=== PATIENT | female | born 1980 | race Caucasian/White ===

== ENCOUNTER 2019-11-23 11:54 | Emergency (ER) | payer MEDICAID ==
[2019-11-23] MEDS ORDERED: Albuterol/Ipratropium 3.0-0.5 MG/3 ML Neb Soln NEB ONE (12:29)
--- NOTE | 2019-11-23 13:15 | EDM.PDOC ---
ED HPI GENERAL MEDICAL PROBLEM - General Chief Complaint: Chest Pain Stated Complaint: RAPID HEART RATE Time Seen by Provider: 11/23/19 12:25 Source of Information: Reports: Patient, Family History Limitations: Reports: No Limitations - History of Present Illness INITIAL COMMENTS - FREE TEXT/NARRATIVE: 39-year-old female with a cough and anterior chest pain for the past 2 days, no fever, starting to have some productive sputum but overnight she developed more intense pain and pleuritic-like pain with breathing. She called the clinic and they sent her to the emergency room. She is a smoker. 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 Denies: Fever, Chills HEENT: Reports: No Symptoms Respiratory: Reports: Shortness of Breath, Pleuritic Chest Pain, Cough, Sputum. Denies: Hemoptysis Cardiovascular: Reports: Chest Pain (Right anterior chest pain with breathing) GI/Abdominal: Denies: Nausea, Vomiting : Reports: No Symptoms Skin: Reports: No Symptoms Neurological: Denies: Dizziness, Headache Psychiatric: Reports: Anxiety ED EXAM, GENERAL - Physical Exam Exam: See Below Exam Limited By: No Limitations General Appearance: Alert, Anxious Eye Exam: Bilateral Eye: Normal Inspection Head: Atraumatic Neck: Supple Respiratory/Chest: Wheezing (Expiratory wheezing is heard bilaterally, especially upper posterior kenyon), Other (Fairly tender to palpation along the right costochondral area) Cardiovascular: Regular Rate, Rhythm, Tachycardia. No: Extra Beats GI/Abdominal: Soft, Non-Tender Extremities: Normal Inspection. No: Pedal Edema Neurological: Alert, Oriented Psychiatric: Anxious Skin Exam: Warm, Dry Course - Vital Signs Last Recorded V/S: Last Vital Signs Temp 99.3 F 11/23/19 12:14 Pulse 109 H 11/23/19 12:14 Resp 20 11/23/19 12:14 BP 135/91 H 11/23/19 12:14 Pulse Ox 96 11/23/19 12:14 - Orders/Labs/Meds Orders: Active Orders 24 hr Category Date Time Status RT Aerosol Therapy [RC] ASDIRECTED Care 11/23/19 12:29 Active Labs: Laboratory Tests 11/23/19 11/23/19 11/23/19 Range/Units 12:47 12:47 12:47 WBC 12.7 H (4.5-11.0) K/uL RBC 4.61 (3.30-5.50) M/uL Hgb 14.3 (12.0-15.0) g/dL Hct 42.3 (36.0-48.0) % MCV 92 (80-98) fL MCH 31 (27-31) pg MCHC 34 (32-36) % Plt Count 254 (150-400) K/uL Neut % (Auto) 78 H (36-66) % Lymph % (Auto) 13 L (24-44) % [place] % (Auto) 9 H (2-6) % Eos % (Auto) 1 L (2-4) % Baso % (Auto) 0 (0-1) % D-Dimer, Quantitative < 100 (0.0-400.0) ng/mL Sodium 139 L (140-148) mmol/L Potassium 4.4 (3.6-5.2) mmol/L Chloride 105 (100-108) mmol/L Carbon Dioxide 27 (21-32) mmol/L Anion Gap 11.4 (5.0-14.0) mmol/L BUN 9 (7-18) mg/dL Creatinine 0.9 (0.6-1.0) mg/dL Est Cr Clr Drug Dosing 70.11 mL/min Estimated GFR (MDRD) > 60 (>60) Glucose 104 (74-106) mg/dL Calcium 8.5 (8.5-10.1) mg/dL Total Bilirubin 0.5 (0.2-1.0) mg/dL AST 20 (15-37) U/L ALT 31 (12-78) U/L Alkaline Phosphatase 67 (46-116) U/L Troponin I < 0.017 (0.000-0.056) ng/mL Total Protein 6.6 (6.4-8.2) g/dL Albumin 3.5 (3.4-5.0) g/dL Globulin 3.1 (2.3-3.5) g/dL Albumin/Globulin Ratio 1.1 L (1.2-2.2) Meds: Medications Discontinued Medications Generic Name Dose Route Start Last Admin Trade Name Freq PRN Reason Stop Dose Admin Albuterol/Ipratropium 3 ml 11/23/19 12:29 11/23/19 12:32 Duoneb 3.0-0.5 Mg/3 Ml NEB 11/23/19 12:30 3 ml ONETIME ONE Administration - Re-Assessments/Exams Free Text/Narrative Re-Assessment/Exam: 11/23/19 13:14 A DuoNeb will be given, followed by a two-view chest x-ray and labs. 11/23/19 13:43 DuoNeb did not seem to give her much subjective improvement but she did start coming down. Vitals remained stable, white count returned mildly elevated at 12,700 but the rest of her labs including troponin and d-dimer were all normal. She was diagnosed with bronchitis and pleurisy, given Zithromax and ketorolac and encouraged to decrease her smoking. She can return if worsening. Departure - Departure Time of Disposition: 13:50 Disposition: Home, Self-Care 01 Clinical Impression: Bronchitis, Pleurisy - Discharge Information Instructions: Pleurisy, Acute Bronchitis, Adult Referrals: Colette Sidhu PA-C [Primary Care Provider] - Forms: ED Department Discharge Care Plan Goals: Take full course of Zithromax, use Toradol up to every 6-8 hours for pain and increase activity as tolerated. Return if worsening or concerns, or consider rechecking if not significantly improved after the course of medication. Sepsis Event Note (ED) - Evaluation Sepsis Screening Result: No Definite Risk - Focused Exam Vital Signs: Vital Signs Temp Pulse Resp BP Pulse Ox 11/23/19 12:14 99.3 F 109 H 20 135/91 H 96 11/23/19 12:12 99.3 F 109 H 20 135/91 H 96 - My Orders Last 24 Hours: My Active Orders 11/23/19 12:29 RT Aerosol Therapy [RC] ASDIRECTED - Assessment/Plan Last 24 Hours: My Active Orders 11/23/19 12:29 RT Aerosol Therapy [RC] ASDIRECTED
--- NOTE | 2019-11-23 13:29 | CR ---
CHEST: 2 view CLINICAL HISTORY:Dyspnea COMPARISON:None FINDINGS: The heart size, pulmonary vascularity and hilar structures are normal. No infiltrate effusion or pneumothorax is seen. IMPRESSION: No acute cardiopulmonary process.
== END 2019-11-23 13:50 | disposition home or self-care (01) ==
LOC: JP.ED 11:54
DX: J40 Bronchitis, not specified as acute or chronic (principal); R09.1 Pleurisy; K21.9 Gastro-esophageal reflux disease without esophagitis; F17.210 Nicotine dependence, cigarettes, uncomplicated; Z79.899 Other long term (current) drug therapy
CPT/HCPCS: 36415; 71046; 71046-26; 80053; 84484; 85025; 85379; 94640; 99284; 99285-25; J7620-GY

== ENCOUNTER 2020-10-22 11:41 | Emergency (ER) | payer MEDICAID ==
--- NOTE | 2020-10-22 12:33 | EDM.PDOC ---
ED HPI GENERAL MEDICAL PROBLEM - General Chief Complaint: Respiratory Problem Stated Complaint: BRONCHITIS Time Seen by Provider: 10/22/20 12:22 Source of Information: Reports: Patient History Limitations: Reports: No Limitations - History of Present Illness INITIAL COMMENTS - FREE TEXT/NARRATIVE: 40 yo female present to ER with worsening cough over the last 4 days. productive. up all night with cough. She does have seasonal allergies and states that they develop into bronchitis every year. 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 Denies: Fever HEENT: Reports: Rhinitis Respiratory: Reports: Shortness of Breath, Wheezing, Cough Cardiovascular: Denies: Chest Pain ED EXAM, GENERAL - Physical Exam Exam: See Below Exam Limited By: No Limitations General Appearance: Alert, WD/WN, No Apparent Distress Ears: Normal External Exam, Normal Canal, Hearing Grossly Normal, Normal TMs Nose: Other (moderate erythema, clear discharge, boggy edema) Throat/Mouth: Normal Inspection, Normal Lips, Normal Teeth, Normal Gums, Normal Oropharynx, Normal Voice, No Airway Compromise Head: Atraumatic, Normocephalic Neck: Supple, Non-Tender, Full Range of Motion, Lymphadenopathy (R), Lymphadenopathy (L) Respiratory/Chest: No Respiratory Distress, No Accessory Muscle Use, Rhonchi, Wh eezing Cardiovascular: No Murmur, Tachycardia Neurological: Alert, Oriented Psychiatric: Normal Affect, Normal Mood Skin Exam: Warm, Dry, Intact Course - Vital Signs Last Recorded V/S: Last Vital Signs Temp 36.8 C 10/22/20 12:00 Pulse 101 H 10/22/20 12:00 Resp 15 10/22/20 12:00 BP 139/92 H 10/22/20 12:00 Pulse Ox 97 10/22/20 12:00 - Orders/Labs/Meds Orders: Active Orders 24 hr Category Date Time Status Chest 2V [CR] Stat Exams 10/22/20 12:32 Taken Departure - Departure Time of Disposition: 13:16 Disposition: Home, Self-Care 01 Condition: Good Clinical Impression: Lower resp. tract infection Bronchitis, acute Qualifiers: Bronchitis organism: unspecified organism Qualified Code(s): J20.9 - Acute bronchitis, unspecified - Discharge Information *PRESCRIPTION DRUG MONITORING PROGRAM REVIEWED*: Not Applicable *COPY OF PRESCRIPTION DRUG MONITORING REPORT IN PATIENT JENNIFER: Not Applicable Instructions: Acute Bronchitis, Adult Referrals: PCP,None [Primary Care Provider] - Forms: ED Department Discharge Additional Instructions: azithromycin 500 mg daily for 5 days albuterol MDI as needed advair twice daily until full resolution fluid intake with goal of 1.5 L per day Sepsis Event Note (ED) - Focused Exam Vital Signs: Vital Signs Temp Pulse Resp BP Pulse Ox 10/22/20 12:00 36.8 C 101 H 15 139/92 H 97 - My Orders Last 24 Hours: My Active Orders 10/22/20 12:32 Chest 2V [CR] Stat - Assessment/Plan Last 24 Hours: My Active Orders 10/22/20 12:32 Chest 2V [CR] Stat
--- NOTE | 2020-10-23 10:39 | CR ---
CHEST: 2 view CLINICAL HISTORY:Cough COMPARISON:November 2019 FINDINGS: The heart size, pulmonary vascularity and hilar structures are normal. No infiltrate effusion or pneumothorax is seen. IMPRESSION: No acute cardiopulmonary process.
== END 2020-10-22 13:46 | disposition home or self-care (01) ==
LOC: JP.ED 11:41
DX: J20.9 Acute bronchitis, unspecified (principal); J22 Unspecified acute lower respiratory infection; Z79.899 Other long term (current) drug therapy
CPT/HCPCS: 71046; 71046-26; 99283-25

== ENCOUNTER 2021-05-22 09:57 | Emergency (ER) | payer MEDICAID ==
[2021-05-22] MEDS: Ketorolac 30 MG/ML SDV IVPUSH ONE (11:33)
[2021-05-22 11:45] LABS: CORONAVIRUS COVID-19 NAA NEGATIVE (NEGATIVE)
[2021-05-22] MEDS: methylPREDNISolone Sodium Succinate 125 MG/2 ML SDV IVPUSH ONE (12:28)
== END 2021-05-22 12:44 | disposition home or self-care (01) ==
LOC: JP.ED 09:57
DX: J20.8 Acute bronchitis due to other specified organisms (principal); G43.909 Migraine, unspecified, not intractable, without status migrainosus; K21.9 Gastro-esophageal reflux disease without esophagitis; Z72.0 Tobacco use; Z79.899 Other long term (current) drug therapy; Z20.822 Contact with and (suspected) exposure to COVID-19
CPT/HCPCS: 0241U; 71046; 71046-26; 96374; 96375; 99283-25; J1790; J1885; J2930